=== PATIENT | female | born 1975 ===

== ENCOUNTER 2021-10-08 11:00 | Inpatient (IN) | payer OTHER ==
[~2021-10-08] VITALS: Ht 157.5 cm; Wt 68.0 kg
[2021-10-08] MEDS ORDERED: FOLIC PO (14:46)
[2021-10-08] MEDS ORDERED: VITAMIN D PO (14:46)
[2021-10-08] MEDS ORDERED: SYNTHROID50 MCG PO (14:46)
[2021-10-10] MEDS ORDERED: FOLIC ACID1 MG (07:59)
[2021-10-10] MEDS ORDERED: VITAMIN D31250 MCG (07:59)
[2021-10-10] MEDS ORDERED: SULFASALAZINE500 MG (07:59)
== END 2021-10-11 12:28 | disposition home or self-care (01) | DRG 743 ==
LOC: O/R 10-10 05:49 → SURG-SUITE 10-10 05:49 → OB/GYN 10-10 07:00 → SURG-SUITE 10-10 14:37
PROVIDERS: ADMIT Obstetrics & Gynecology Gynecologic Oncology; ATTEND Obstetrics & Gynecology Gynecologic Oncology
PROC: 0UT74ZZ Resection of Bilateral Fallopian Tubes, Percutaneous Endoscopic Approach (ICD-10-PCS; 2021-10-10)
PROC: 0UT24ZZ Resection of Bilateral Ovaries, Percutaneous Endoscopic Approach (ICD-10-PCS; 2021-10-10)
PROC: 0DNW4ZZ Release Peritoneum, Percutaneous Endoscopic Approach (ICD-10-PCS; 2021-10-10)
PROC: 0UT94ZZ Resection of Uterus, Percutaneous Endoscopic Approach (ICD-10-PCS; principal; 2021-10-10 07:00)
DX: D25.9 Leiomyoma of uterus, unspecified (principal); Z20.822 Contact with and (suspected) exposure to COVID-19